=== PATIENT | female | born 1990 | race Caucasian/White ===

== ENCOUNTER → 2016-09-07 | Outpatient (CLI) | payer OTHER | END | disposition home or self-care (01) | LOC: M SMT 09:14 | PROVIDERS: ATTEND Obstetrics & Gynecology | DX: E28.2 Polycystic ovarian syndrome (principal) ==

== ENCOUNTER → 2016-09-21 | Outpatient (CLI) | payer OTHER ==
[2016-09-21 14:30] LABS: ALBUMIN 3.7 GM/DL (3.2-5.2); ALBUMIN/GLOBULIN RATIO 1.03 (1.00-1.93); ALKALINE PHOSPHATASE 94 U/L (45-117); ALT/SGPT 19 U/L (12-78); ANION GAP 10 MEQ/L (8-16); AST/SGOT 15 U/L (15-37); BILIRUBIN,TOTAL 0.3 MG/DL (0.2-1.0); BLOOD UREA NITROGEN 13 MG/DL (7-18); CALCIUM LEVEL 8.9 MG/DL (8.5-10.1); CARBON DIOXIDE LEVEL 26 MEQ/L (21-32); CHLORIDE LEVEL 105 MEQ/L (98-107); CREATININE FOR GFR 0.85 MG/DL (0.55-1.02); FREE T4 1.12 NG/DL (0.76-1.46); GLOMERULAR FILTRATION RATE > 60.0 (>60); GLUCOSE, FASTING 82 MG/DL (70-105); POTASSIUM SERUM 4.5 MEQ/L (3.5-5.1); SODIUM LEVEL 141 MEQ/L (136-145); TOTAL PROTEIN 7.3 GM/DL (6.4-8.2)
[2016-09-23 00:17] LABS: Lyme Disease IgG/IgM Antibodie <0.91 ISR (0.00-0.90); Lyme Disease IgM Ab Quantitati <0.80 index (0.00-0.79)
== END | disposition home or self-care (01) ==
LOC: M WUC 10:31
PROVIDERS: ATTEND Family Medicine
DX: R53.83 Other fatigue (principal); E66.01 Morbid (severe) obesity due to excess calories

== ENCOUNTER → 2016-10-08 | Outpatient (REF) | payer OTHER | END | disposition home or self-care (01) | LOC: M LABSMT 13:25 | PROVIDERS: ATTEND Obstetrics & Gynecology | DX: E28.2 Polycystic ovarian syndrome (principal) ==

== ENCOUNTER → 2016-11-23 | Outpatient (CLI) | payer OTHER | LOC: M SMT 13:59 | PROVIDERS: ATTEND Obstetrics & Gynecology | DX: N91.0 Primary amenorrhea (principal) ==

== ENCOUNTER → 2016-11-27 | Outpatient (CLI) | payer OTHER | LOC: M WUC 13:33 | PROVIDERS: ATTEND Obstetrics & Gynecology | DX: Z34.81 Encounter for supervision of other normal pregnancy, first trimester (principal) ==

== ENCOUNTER → 2016-12-28 | Outpatient (CLI) | payer OTHER ==
[2016-12-28 19:11] LABS: BASO % 0.4 % (0.0-1.0); EOS # 0.2 K/mm3 (0.0-0.50); EOS % 1.6 % (0.0-3.0); LARGE UNSTAINED CELL # 0.1 K/mm3 (0.0-0.4); LYMPH # 1.6 K/mm3 (1.5-6.5); LYMPH % 17.7 % (24.0-44.0); MEAN CORPUSCULAR HEMOGLOBIN 29.8 pg (27.0-33.0); MEAN CORPUSCULAR HGB CONC 33.9 g/dl (32.0-36.5); MEAN CORPUSCULAR VOLUME 87.9 fl (80.0-96.0); MONO # 0.4 K/mm3 (0.0-0.8); MONO % 3.9 % (0.0-5.0); NEUTROPHILS # 6.7 K/mm3 (1.8-7.7); NEUTROPHILS % 75.3 % (36.0-66.0); PLATELET COUNT, AUTOMATED 285 k/mm3 (150-450); RED CELL DISTRIBUTION WIDTH 12.6 % (11.5-14.5)
[2016-12-31 11:32] LABS: HBsAg Prenatal NEGATIVE (NEGATIVE)
== END ==
LOC: M WUC 14:09
PROVIDERS: ATTEND Specialist
DX: Z34.81 Encounter for supervision of other normal pregnancy, first trimester (principal); Z36 Encounter for antenatal screening of mother; Z3A.00 Weeks of gestation of pregnancy not specified

== ENCOUNTER → 2017-02-15 | Outpatient (CLI) | payer OTHER | LOC: M SMT 10:03 | PROVIDERS: ATTEND Advanced Practice Midwife | DX: Z36 Encounter for antenatal screening of mother (principal); Z3A.00 Weeks of gestation of pregnancy not specified; Z31.430 Encounter of female for testing for genetic disease carrier status for procreative management ==

== ENCOUNTER → 2017-02-22 | Outpatient (CLI) | payer OTHER ==
--- NOTE | 2017-02-22 11:34 | REP ---
OB ULTRASOUND: Real-time sonographic evaluation of the gravid uterus performed. There is a single living intrauterine gestation. The estimated gestational age is 18 weeks 0 days based on the LMP, with EDC 07/26/2017. Today's measurements indicate appropriate growth. BPD 40 mm 18 weeks 1 day, 52nd percentile HC 155 mm 18 weeks 3 days, 64th percentile AC 130 mm 18 weeks 4 days, 62nd percentile FL 28 mm 18 weeks 4 days, 66th percentile HC/AC ratio 1.19 within normal range. Estimated weight 247 grams, 70th percentile. Cervix is closed and measures 3.6 cm in length. heart rate 157 beats per minute. SEEN/GROSSLY UNREMARKABLE Lateral ventricles No Posterior fossa No Upper lip No Four-chamber heart No LVOT No RVOT No Stomach Yes Cord insertion Yes Three vessel cord Yes Kidneys No Bladder Yes Spine No position breech. Placenta is anterior and grade 0 with no previa or abruption. Amniotic fluid appears within normal limits. Signed by Jamel Brandon MD 02/22/2017 03:15 P
== END ==
LOC: M RAD 09:54
PROVIDERS: ATTEND Advanced Practice Midwife
DX: O32.1XX0 Maternal care for breech presentation, not applicable or unspecified (principal); Z36 Encounter for antenatal screening of mother; Z3A.18 18 weeks gestation of pregnancy

== ENCOUNTER → 2017-04-05 | Outpatient (CLI) | payer OTHER ==
[~2017-04-05] MED LIST: PRENTAB9 PO
--- NOTE | 2017-04-05 11:34 | REP ---
REASON: Followup anatomy. Multiple sonographic image of the gravid uterus show a single living intrauterine gestation in the cephalic presentation. Doppler interrogation of the heart shows a heart rate of 163 beats per minute. The placenta is anterior and not low lying. The subjective amniotic fluid volume is within normal limits. The cervix measures 4.3 cm in length and is closed. Evaluation of the maternal adnexal spaces show no abnormalities. BPD 6.3 cm = 25 weeks 3 days HC 22.1 cm = 24 weeks 1 day AC 20.3 cm = 25 weeks 0 days FL 4.4 cm = 24 weeks 3 days The estimated weight is 725 grams, which is at the 65th percentile for a 02-mrdp-9-day gestational age. The choroid plexus, cerebellum, facial features, four chamber heart, ventricular outflow tracts, kidneys, and spine were all well-visualized today completing the anatomical screen. IMPRESSION: Single living intrauterine gestation as described above with an estimated gestational age of 24 weeks 6 days via composite criteria and an estimated date of delivery of 07/20/2017 by today's exam. Signed by Pavel Lam DO 04/05/2017 01:57 P
== END ==
LOC: M RAD 09:50
PROVIDERS: ATTEND Specialist
DX: Z36 Encounter for antenatal screening of mother (principal)

== ENCOUNTER → 2017-04-20 | Outpatient (CLI) | payer OTHER ==
[2017-04-20 11:48] LABS: MEAN CORPUSCULAR HEMOGLOBIN 28.9 pg (27.0-33.0); MEAN CORPUSCULAR HGB CONC 33.9 g/dl (32.0-36.5); MEAN CORPUSCULAR VOLUME 85.3 fl (80.0-96.0); RED CELL DISTRIBUTION WIDTH 13.6 % (11.5-14.5); WHITE BLOOD COUNT 8.8 K/mm3 (4.0-10.0)
== END ==
LOC: M WUC 10:48
PROVIDERS: ATTEND Obstetrics & Gynecology
DX: Z34.82 Encounter for supervision of other normal pregnancy, second trimester (principal); Z36 Encounter for antenatal screening of mother; Z3A.00 Weeks of gestation of pregnancy not specified

== ENCOUNTER → 2017-06-14 | Outpatient (CLI) | payer OTHER ==
--- NOTE | 2017-06-14 14:46 | REP ---
Obstetric ultrasound for size and presentation: There is a a single intrauterine gestation in a vertex presentation. There is motion and cardiac activity with a heart rate of 152 beats per minute. The placenta is anterior. There is no placenta previa or abruptio. Placenta is grade 1. The amniotic fluid volume subjectively is normal. The amniotic fluid index is 11.1 (8.1 - 24.8). The cervix measures 4.4 cm length. The maternal adnexa and cul-de-sac are unremarkable. By the ultrasound today gestational age is 34 weeks 5 days with an SHERRILL of 07/21/2017. Gestational age by the first ultrasound is 34 weeks 3 days and by LMP 34 weeks 0 days. The weight is 2256 grams (5 pounds, 10 ounces). This is the 64th percentile for 34 weeks 0 days. Umbilical artery Doppler assessment: SD ratio was 2.12 Resistive index is 0.53 Diastolic flow velocity is 33.6 cm/sec. These values are normal Signed by Jamel Acevedo MD 06/14/2017 02:37 P
== END ==
LOC: M RAD 11:18
PROVIDERS: ATTEND Advanced Practice Midwife
DX: O99.213 Obesity complicating pregnancy, third trimester (principal); Z3A.34 34 weeks gestation of pregnancy

== ENCOUNTER 2017-06-19 16:47 | Outpatient (CLI) | payer OTHER ==
[~2017-06-19] VITALS: Ht 170.2 cm; Wt 140.0 kg
[2017-06-19 17:14] VITALS: BP 137/68
[2017-06-19 18:01] VITALS: BP 116/56
[2017-06-19] MEDS ORDERED: PRENTAB9 PO (18:32)
== END 2017-06-19 18:30 | disposition home or self-care (01) ==
LOC: M LDO 16:47
PROVIDERS: ATTEND Specialist
DX: O36.8130 Decreased fetal movements, third trimester, not applicable or unspecified (principal); Z3A.35 35 weeks gestation of pregnancy

== ENCOUNTER → 2017-06-28 | Outpatient (REF) | payer OTHER | LOC: M LAB REF 17:26 | PROVIDERS: ATTEND Obstetrics & Gynecology | DX: Z36.85 Encounter for antenatal screening for Streptococcus B (principal) ==

== ENCOUNTER → 2017-06-28 | Outpatient (CLI) | payer OTHER ==
--- NOTE | 2017-06-28 12:15 | REP ---
Right lower extremity Duplex Doppler venous ultrasound: Real time compression and duplex Doppler interrogation of the right lower extremity deep venous system is performed. The right common femoral, superficial femoral and popliteal veins are fully compressible with transducer pressure and demonstrate normal spontaneous and phasic flow, without evidence of deep venous thrombosis. Impression: No evidence of deep venous thrombosis of the right lower extremity femoral popliteal venous system. Signed by Jamel Brandon MD 06/28/2017 12:07 P
== END ==
LOC: M RAD 11:15
PROVIDERS: ATTEND Obstetrics & Gynecology
DX: Z36.85 Encounter for antenatal screening for Streptococcus B (principal); R22.41 Localized swelling, mass and lump, right lower limb

== ENCOUNTER 2017-07-20 17:25 | Inpatient (IN) | payer OTHER ==
[~2017-07-20] VITALS: Ht 170.2 cm; Wt 141.2 kg
[2017-07-20 17:46] VITALS: BP 129/71
[2017-07-20 17:48] VITALS: BP 129/71
[2017-07-20] MEDS ORDERED: RANI15TA PO (17:51)
[2017-07-20 19:42] VITALS: BP 119/67
[2017-07-20] MEDS: miSOPROStol 50 MCG 1/2 TAB (S0191) PO SCH (20:10)
[2017-07-20 20:14] LABS: MEAN CORPUSCULAR HEMOGLOBIN 28.3 pg (27.0-33.0); MEAN CORPUSCULAR HGB CONC 33.1 g/dl (32.0-36.5); MEAN CORPUSCULAR VOLUME 85.5 fl (80.0-96.0); PLATELET COUNT, AUTOMATED 282 10^3/uL (150-450); RED CELL DISTRIBUTION WIDTH 14.2 % (11.5-14.5); WHITE BLOOD COUNT 9.8 10^3/uL (4.0-10.0)
[2017-07-20 20:43] VITALS: BP 116/56
--- NOTE | 2017-07-20 22:12 | HPE ---
DATE OF ADMISSION: 07/20/2017 REASON FOR ADMISSION: Premature rupture of membranes. HISTORY OF PRESENT ILLNESS: Mrs. Espino is a 27-year-old one who presents at 39 weeks and one day estimated gestational age by last menstrual period confirmed by first trimester ultrasound., with complaints of leakage of fluid. She reports leakage of clear fluid that initially occurred at 7:30 this morning, and she reports steady leakage of fluid requiring pad changes. She denied any vaginal bleeding. Reports some regular contractions as well as active movement. Her course has been unremarkable. She initiated care in her first trimester and has been appropriate throughout. PAST MEDICAL HISTORY: She has a history of depression and endometriosis. PAST SURGICAL HISTORY: She has had tonsillectomy. MEDICATIONS: Include vitamins and Zantac. ALLERGIES: She has no known drug allergies. OBSTETRICAL HISTORY: She is a one. SOCIAL HISTORY: She denies any alcohol, tobacco or drug use during her . PHYSICAL EXAMINATION: Vital signs are stable. She is afebrile. She has category one heart rate tracing with regular contractions on tocometer. GENERAL APPEARANCE: Is well appearing. LUNGS: Clear to auscultation bilaterally. CARDIOVASCULAR: Heart regular rate and rhythm. ABDOMEN: Gravid. Estimated weight (EFW) 3070 grams. CERVICAL EXAM: She is 1 cm dilated, 75% effaced, -3 station. STERILE SPECULUM EXAM: Positive for Nitrazine, positive fluid. Fern was negative. Transabdominal ultrasound showed amniotic fluid of 8 cm. LABORATORY DATA: Blood type is O positive. Antibody screen is negative. Rubella is immune. RPR is nonreactive. Hepatitis surface antigen is negative. HIV is negative. Chlamydia and gonorrhea screens were negative. She had a normal one-hour Glucola. She is GBS negative. ASSESSMENT: 1. Mrs. Espino is a 27-year-old one at 39 weeks and one day estimated gestational age with premature rupture of membranes. 2. Reassuring status. PLAN: 1. Admit to labor and delivery. Complete blood count (CBC), rapid plasma reagin (RPR), type and screen. 2. Thoroughly counseled the patient in regards to medications, all procedures performed in labor and delivery. Have discussed augmentation of her labor, as well as verbally consented her for emergency surgery, blood products and anesthesia. She desires to proceed with admission. 3. Will augment labor with 50 mcg of misoprostol orally. MTDD
[2017-07-20 22:43] VITALS: BP 104/51
[2017-07-20 23:43] VITALS: BP 115/60
[2017-07-21] VITALS (10 sets, daily range): BP systolic 111–135; BP diastolic 54–74
[2017-07-21] MEDS: miSOPROStol 50 MCG 1/2 TAB (S0191) PO SCH
[2017-07-21] MEDS ORDERED: BICITRA 30ML SOLN UDC PO ONE (00:30)
[2017-07-21] MEDS ORDERED: TERBUTALINE SULFATE 1 MG/ML VIAL (J3105) SC ONE (00:45)
[2017-07-21] MEDS ORDERED: ONDANSETRON 4MG/2ML VIAL (J2405) IV PRN ×3 (02:20→04:15)
[2017-07-21] MEDS ORDERED: METOCLOPRAMIDE INJ 10MG/2ML VIAL (J2765) IV PRN ×2 (02:20→03:45)
[2017-07-21] MEDS ORDERED: NALOXONE INJ 0.4 MG/1 ML VIAL (J2310) IV PRN ×2 (02:20)
[2017-07-21] MEDS ORDERED: NALBUPHINE HCL 10 MG/ML AMP (J2300) IV PRN (02:20)
[2017-07-21 03:00] LABS: CORD GAS ABE A -4.4; CORD GAS HCO3 A 23.8 MEQ/L; CORD GAS O2 SAT A 48.2 %; CORD GAS PCO2 A 56.4 mmHg; CORD GAS PH A 7.243 UNITS; CORD GAS PO2 A 21.8 mmHg; CORD GAS SBC A 19.7 MEQ/L; CORD GAS TCO2 A 25.5 MEQ/L
[2017-07-21 03:02] LABS: CORD GAS ABE V -3.6; CORD GAS HCO3 V 23.4 MEQ/L; CORD GAS O2 SAT V 46.9 %; CORD GAS PCO2 V 49.4 mmHg; CORD GAS PH V 7.293 UNITS; CORD GAS SBC V 20.3 MEQ/L; CORD GAS TCO2 V 24.9 MEQ/L
[2017-07-21] MEDS ORDERED: PERCOCET 5MG/325MG TAB PO PRN ×2 (03:45→04:15)
[2017-07-21] MEDS ORDERED: fentaNYL 100 MCG/2 ML INJECTION (J3010) IV PRN (03:45)
[2017-07-21] MEDS ORDERED: LR 1,000 ML IV SCH (03:45)
[2017-07-21] MEDS ORDERED: OXYTOCIN DRIP 30 UNITS in APPROPRIATE DILUENT 1 EA IV SCH (04:07)
[2017-07-21] MEDS ORDERED: MOM 30ML SUSPENSION UDC PO PRN (04:15)
[2017-07-21] MEDS ORDERED: RHOGAM 300 MCG (1500 IU) INJ (J2790) IM SCH (04:15)
[2017-07-21] MEDS ORDERED: MEASLES,MUMPS,RUBELLA VACCINE INJ (MMR-II) (90707) SC SCH (04:15)
[2017-07-21] MEDS ORDERED: KETOROLAC 30 MG/ML VIAL (J1885) IV SCH (05:00)
[2017-07-21] MEDS: LR 1,000 ML IV SCH ×2 (06:12→12:11)
[2017-07-21] MEDS ORDERED: IBUP1TAB7 PO (08:51)
[2017-07-21] MEDS ORDERED: PERCOCET PO (08:53)
[2017-07-21] MEDS: PRENATAL VITAMINS CHEWABLE TABLET PO SCH (09:17)
--- NOTE | 2017-07-21 11:19 | RO ---
DATE OF PROCEDURE: 07/21/2017 PREPROCEDURE DIAGNOSIS: Inability to augment labor with nonreassuring heart rate tracing. POSTPROCEDURE DIAGNOSES: 1. Inability to augment labor with nonreassuring heart rate tracing. 2. Meconium stained amniotic fluid. PROCEDURE PERFORMED: Primary low transverse section. SURGEON: Traci Walker MD TURNING AND BEADING MACHINE OPERATOR: None. ANESTHESIA: Spinal. ESTIMATED BLOOD LOSS: 600 mL. INTRAVENOUS FLUIDS: 1100 mL of lactated Ringer's solution. URINE OUTPUT: 125 mL of clear urine. PREOPERATIVE ANTIBIOTICS: 2 grams of Ancef. OPERATIVE FINDINGS: Liveborn male . scores were 7 and 8. Weight was 3450 grams or 7 pounds 10 ounces. Cord gas is 7.24, 7.29 with base excess of -4.4 and -3.6. DESCRIPTION OF PROCEDURE: After informed consent was obtained and written consent was reviewed, the patient was brought to the operating room where spinal anesthesia was placed. She was then placed in the supine position with left lateral tilt. Cohn catheter was placed and set to gravity. She was then prepped and draped in the normal sterile fashion. A time-out in the operating room was performed, identifying the patient, procedure to be performed, as well as drug allergies. Anesthesia was tested and deemed to be adequate. A Pfannenstiel skin incision was then made and carried down to the underlying rectus fascia. The fascia was scored and this incision was extended bilaterally. The fascia was then dissected off the underlying rectus muscles both superiorly and inferiorly. The rectus muscles were in the midline. The peritoneum was then entered. The vesicouterine peritoneum was then identified, excised creating a bladder flap. A bladder blade was placed to retract back the bladder. Curvilinear incision was then made in the lower uterine segment. This was productive of thick stained meconium amniotic fluid. The head was then brought to the level of the incision and delivered, followed by delivery of shoulders and corpus. The cord was clamped times two and was cut, the infant was taken over to the warmer. Cord gases and cord blood was obtained. The placenta was then delivered grossly intact. The uterus was then exteriorized and cleared of clots and debris. The uterine incision was closed in two layers using #0 Vicryl first layer in a running locking fashion, followed by a second layer in a running nonlocking fashion for imbrication. Several figure of eight stitches were placed for hemostasis. The abdomen was then suctioned. The uterus was returned to the patient's abdomen. Surgical sites were inspected and was noted to be hemostatic. The anterior peritoneum was then reapproximated with #3-0 Vicryl, the rectus muscles were reapproximated with #3-0 Vicryl. The fascia was then closed with #0 Vicryl in a running nonlocking fashion. The subcutaneous tissue was then irrigated and suctioned. The subcutaneous tissue was then reapproximated using #3-0 Vicryl. Several subdermal stitches were placed of #3-0 Vicryl and the skin was closed with #4-0 Monocryl in a subcuticular fashion. The incision was then cleaned and dried. Mastisol was applied above and below incision. Steri-Strips were applied over the incision and the incision was dressed. The patient was then taken to recovery in stable condition. The couple has decided to name their son Dennis. Counts were correct.
[2017-07-21] MEDS: KETOROLAC 30 MG/ML VIAL (J1885) IV SCH ×2 (12:11→18:16)
[2017-07-22] MEDS: KETOROLAC 30 MG/ML VIAL (J1885) IV SCH (00:09)
[2017-07-22] MEDS: DOCUSATE SODIUM 100 MG CAP PO PRN ×2 (00:17→21:37)
[2017-07-22 02:00] VITALS: BP 114/53
[2017-07-22 06:09] VITALS: BP 112/57
[2017-07-22 07:06] LABS: MEAN CORPUSCULAR HEMOGLOBIN 28.3 pg (27.0-33.0); MEAN CORPUSCULAR HGB CONC 32.9 g/dl (32.0-36.5); PLATELET COUNT, AUTOMATED 204 10^3/uL (150-450); RED CELL DISTRIBUTION WIDTH 14.3 % (11.5-14.5); WHITE BLOOD COUNT 9.6 10^3/uL (4.0-10.0)
[2017-07-22] MEDS: PRENATAL VITAMINS CHEWABLE TABLET PO SCH (07:33)
[2017-07-22] MEDS: IBUPROFEN 800 MG TAB PO SCH ×2 (07:34→15:52)
[2017-07-22 10:08] VITALS: BP 114/56
[2017-07-22 15:38] VITALS: BP 114/61
[2017-07-22 18:14] VITALS: BP 132/73
[2017-07-22] MEDS: PERCOCET 5MG/325MG TAB PO PRN (21:37)
[2017-07-22 22:00] VITALS: BP 124/59
[2017-07-23 06:00] VITALS: BP 124/59
[2017-07-23] MEDS: PERCOCET 5MG/325MG TAB PO PRN (06:08)
[2017-07-23] MEDS: PRENATAL VITAMINS CHEWABLE TABLET PO SCH (07:32)
[2017-07-23] MEDS: IBUPROFEN 800 MG TAB PO SCH ×2 (07:32)
[2017-07-23] MEDS ORDERED: OXYC1TAB23 PO (08:17)
== END 2017-07-23 11:25 | disposition home or self-care (01) | DRG 766 ==
LOC: M LDO 17:25 → M LDI 19:31 → M OBS 07-21 04:00
PROVIDERS: ADMIT Obstetrics & Gynecology; ATTEND Obstetrics & Gynecology
PROC: 10D00Z1 Extraction of Products of Conception, Low, Open Approach (ICD-10-PCS; principal; 2017-07-21 03:06)
DX: O42.02 Full-term premature rupture of membranes, onset of labor within 24 hours of rupture (principal); O77.0 Labor and delivery complicated by meconium in amniotic fluid; Z3A.39 39 weeks gestation of pregnancy; O76 Abnormality in fetal heart rate and rhythm complicating labor and delivery; Z37.0 Single live birth

== ENCOUNTER → 2018-03-18 | Outpatient (REF) | payer OTHER | LOC: M LAB REF 17:13 | DX: J02.9 Acute pharyngitis, unspecified (principal) ==

== ENCOUNTER → 2018-06-09 | Outpatient (CLI) | payer OTHER ==
[2018-06-09 13:44] LABS: BASO % 0.8 % (0.0-1.0); EOS # 0.1 10^3/uL (0.0-0.50); HEMATOCRIT 42.1 % (36.0-47.0); HEMOGLOBIN 13.6 g/dl (12.0-15.5); IMMATURE GRANULOCYTE % 0.2 % (0-3.0); LYMPH # 1.7 10^3/uL (1.5-6.5); LYMPH % 35.2 % (24.0-44.0); MEAN CORPUSCULAR HEMOGLOBIN 27.9 pg (27.0-33.0); MEAN CORPUSCULAR HGB CONC 32.3 g/dl (32.0-36.5); MEAN CORPUSCULAR VOLUME 86.4 fl (80.0-96.0); MONO # 0.4 10^3/uL (0.0-0.8); MONO % 7.1 % (0.0-5.0); NEUTROPHILS # 2.7 10^3/uL (1.8-7.7); NEUTROPHILS % 54.7 % (36.0-66.0); PLATELET COUNT, AUTOMATED 271 10^3/uL (150-450); RED BLOOD COUNT 4.87 10^6/uL (4.00-5.40); RED CELL DISTRIBUTION WIDTH 12.9 % (11.5-14.5); WHITE BLOOD COUNT 4.9 10^3/uL (4.0-10.0)
[2018-06-09 14:09] LABS: ALBUMIN 3.7 GM/DL (3.2-5.2); ALBUMIN/GLOBULIN RATIO 1.03 (1.00-1.93); ALKALINE PHOSPHATASE 127 U/L (45-117); ALT/SGPT 18 U/L (12-78); ANION GAP 6 MEQ/L (8-16); AST/SGOT 17 U/L (7-37); BILIRUBIN,TOTAL 0.4 MG/DL (0.2-1.0); BLOOD UREA NITROGEN 16 MG/DL (7-18); CALCIUM LEVEL 8.7 MG/DL (8.5-10.1); CARBON DIOXIDE LEVEL 27 MEQ/L (21-32); CHLORIDE LEVEL 107 MEQ/L (98-107); CREATININE FOR GFR 0.86 MG/DL (0.55-1.30); FREE T4 0.93 NG/DL (0.76-1.46); GLOMERULAR FILTRATION RATE > 60.0 (>60); GLUCOSE, FASTING 82 MG/DL (70-100); POTASSIUM SERUM 4.5 MEQ/L (3.5-5.1); SODIUM LEVEL 140 MEQ/L (136-145); TOTAL PROTEIN 7.3 GM/DL (6.4-8.2)
[2018-06-09 14:10] LABS: TOTAL 25(OH) VITAMIN D 29.3 NG/ML (30.0-100.0)
== END ==
LOC: M SMT 10:25
DX: E55.9 Vitamin D deficiency, unspecified (principal); Z13.0 Encounter for screening for diseases of the blood and blood-forming organs and certain disorders involving the immune mechanism; Z13.29 Encounter for screening for other suspected endocrine disorder
CPT/HCPCS: 84443